=== PATIENT | male | born 1950 | race Caucasian/White ===

== ENCOUNTER 2019-05-13 11:09 | Outpatient (CLI) | payer MEDICARE ==
[2019-05-13 11:43] LABS: #Basophils 0.1 thou/uL (0.0-0.2); #Eosinphils 0.1 thou/uL (0.0-0.7); #Lymphocytes 1.2 thou/uL (1.20-3.40); #Monocytes 0.7 thou/uL (0.11-0.59); #Neutrophils 3.3 thou/uL (1.40-6.50); %Basophils 1.7 % (0.0-1.0); %Eosinophils 2.6 % (0.0-10.0); %Lymphocytes 22.4 % (21.0-51.0); %Monocytes 12.7 % (0.0-10.0); %Neutrophils 60.6 % (42.0-75.0); Hemoglobin 16.9 g/dL (14.0-18.0); Mean Corpuscular HGB CONC 32.6 g/dL (32.0-36.0); Mean Corpuscular Hemoglobin 31.2 pg (27.0-31.0); Mean Corpuscular Volume 95.7 fL (78.0-98.0); Mean Platelet Volume 6.2 fL (7.4-10.4); Platelet Count 183 thou/uL (130-400); Red Blood Cell (RBC) Count 5.41 mill/uL (4.70-6.10); White Blood Cell (WBC) Count 5.5 thou/uL (4.8-10.8)
[2019-05-13 12:23] LABS: ALT (SGPT) 27 U/L (8-55); AST (SGOT) 22 U/L (5-34); Albumin 4.5 g/dL (3.4-4.8); Alkaline Phosphatase 72 U/L (40-110); Anion Gap 13 mmol/L (10-20); BUN (Urea Nitrogen) 20 mg/dL (8.4-25.7); Bilirubin, Total 0.5 mg/dL (0.2-1.2); Calc. Creatinine Clearance 0 mL/min (70-130); Calcium 9.7 mg/dL (7.8-10.44); Carbon Dioxide 29 mmol/L (23-31); Chloride 101 mmol/L (98-107); Estimated GFR-MDRD 58; Globulin 2.6 g/dL (2.4-3.5); Glucose 97 mg/dL (80-115); Potassium 4.2 mmol/L (3.5-5.1); Protein, Total 7.1 g/dL (5.8-8.1); Sodium 139 mmol/L (136-145)
[2019-05-13 12:30] LABS: CKMB 2.3 ng/mL (0-6.6); Troponin I Less than 0.010 ng/mL (< 0.028)
--- NOTE | 2019-05-13 15:47 | RAD ---
TWO VIEW CHEST: INDICATIONS: Chest pain. COMPARISON: 06/10/2013 FINDINGS: Elevation of the right hemidiaphragm appears stable. There is linear stranding in the right lung base . There was a nodular density overlying the right lung base on the prior study. This density is not see n today, although there is decreased inspiration, which may cause the diaphragm to obscure this nodul e on the current study. There is question of a nodular density in the left lower lung. This overlies the anterior left fifth rib and is not well delineated. There is no evidence of infiltrate or effusion. Heart and mediastinum are unremarkable. Osseous struc tures are unremarkable. IMPRESSION: Question nodular density in the left lower lung which overlies the anterior left fifth rib. A nodular density in the right lung on the prior examination is not visualized today, possibly due to poor ins piration. Recommend further evaluation with noncontrast chest CT. CODE T POS: IRIS
== END 2019-05-13 11:10 | disposition home or self-care (01) ==
LOC: MADLAB 11:09
PROVIDERS: ATTEND Family Medicine
DX: R07.9 Chest pain, unspecified (principal)
CPT/HCPCS: 36415; 71046; 80053; 82553; 84484; 85025; 93005; 93010

== ENCOUNTER 2019-05-15 12:43 | Outpatient (CLI) | payer MEDICARE ==
[~2019-05-15 12:43] MED LIST: Iopamidol 370 76% 100 ML VIAL ONE
--- NOTE | 2019-05-15 15:07 | CT ---
CT CHEST WITH CONTRAST: CT ABDOMEN WITH CONTRAST: CT PELVIS WITH CONTRAST: HISTORY: Abnormal findings on chest radiograph. Right upper quadrant pain. COMPARISON: None. CORRELATION: None. FINDINGS: CHEST Mediastinum: No mass, lymphadenopathy or hematoma. Aorta: Normal caliber. No periaortic fat stranding. Heart: Normal heart size. No pericardial effusion. Minimal atherosclerosis of the coronary arteries. Trachea and central bronchi: Patent Pleural spaces: No pleural effusion Right lung: Linear opacities represent areas of scar and subsegmental atelectasis. No masses or conso lidation. 0.5 x 0.6 cm solid nodule in the right lower lobe. Left lung:Linear opacities represent areas of scar and subsegmental atelectasis. No mass or consolida tion. A 0.3 x 0.5 cm nodule abutting the major fissure, compatible with a subpleural lymph node. A 0.3 x 0.2 cm solid nodule in the left upper lobe. A 0.3 x 0.3 cm solid nodule in the left lower lobe. A 0.5 x 0.3 cm nodule in the left lower lobe. Pneumothorax: None ABDOMEN Gallbladder: Unremarkable Portal vein: Patent Liver: Appropriate enhancement. Spleen: Appropriate enhancement Pancreas: Appropriate enhancement Adrenal glands: Appropriate enhancement Lymphadenopathy: No gastrohepatic, retrocrural or periportal lymphadenopathy Kidneys: Symmetric enhancement. No obstructive uropathy. Subcentimeter hypodensity in the left renal cortex and right renal cortex are too small to characterize. Mesentery: No mass, lymphadenopathy, free air or free fluid Alimentary canal: No evidence of small bowel obstruction. Ileocecal junction is unremarkable. Normal caliber retrocecal appendix. Scattered fecal material in a nondistended, nondilated colon. Diverticulosis without evidence of diverticulitis. PELVIS Mildly enlarged prostate gland with mass effect upon the floor of the urinary bladder. No obvious katty dder mucosa abnormality. No pelvic mass, lymphadenopathy, free air or free fluid. OSSEOUS STRUCTURES: No acute osseous abnormalities. IMPRESSION: 1. Multiple lung parenchymal nodules as described above. Based upon clinical history/suspicion, follo w-up CT six month to twelve months. 2. No obvious acute abnormality in the abdomen or pelvis. Transcribed Date/Time: 05/15/2019 3:32 PM
== END 2019-05-15 12:44 | disposition home or self-care (01) ==
LOC: MADCT 12:43
PROVIDERS: ATTEND Family Medicine
DX: R10.11 Right upper quadrant pain (principal); R91.8 Other nonspecific abnormal finding of lung field
CPT/HCPCS: 71260; 74177; Q9967